=== PATIENT | female | born 1950 | race American Indian/Alaskan Native ===

== ENCOUNTER 2017-10-07 12:13 | Emergency (ER) | payer MEDICARE ==
[2017-10-07 12:22] VITALS: BP 162/73
--- NOTE | 2017-10-07 14:58 | Emergency Department Report ---
Chief Complaint: Extremity Injury, Lower Stated Complaint: LEFT ANKLE PAIN Time Seen by Provider: 10/07/17 14:30 - HPI History of Present Illness: 67-year-old female presents to the emergency department with complaint of left ankle pain and swelling that occurred after she tripped over a gas hose while trying to fill up her car. She then rolled her foot and ankle. She is able to bear some weight but it hurts. She has a past medical history of diabetes and hypertension and hypothyroidism. She has not taken anything for her symptoms prior to presentation. - ROS Review of Systems: Positive for ankle pain and swelling Negative for skin color change, rash - Exam Vital Signs: Vital Signs 10/07/17 12:19 Temperature 97.8 F Pulse Rate 77 Respiratory 18 Rate Blood Pressure 162/73 O2 Sat by Pulse 97 Oximetry Physical Exam: Patient has tenderness to palpation to the left lateral malleolus where she has some nonpitting swelling. She has intact +2 over 4 left dorsalis pedis pulse MSE screening note: Focused history and physical exam performed. Due to findings the following was ordered: We will obtain a left ankle x-ray. ED Disposition for MSE Condition: Stable Referrals: PRIMARY CARE [Primary Care Provider] - 3-5 Days
--- NOTE | 2017-10-07 16:01 | XRay Report ---
FINAL REPORT EXAM: XR ANKLE 3+V LT HISTORY: left ankle pain TECHNIQUE: Three views left ankle. PRIORS: None currently available. FINDINGS: Oblique longitudinal fracture of the distal fibula is nondisplaced and above the level of the ankle mortise. Intra-articular extension noted. No tibial fractures noted. Talus appears intact. No dislocation. Small Achilles enthesophyte. There is no cortical destruction to suggest osteomyelitis. There are no suspicious osseous lesions. There are no radiopaque foreign objects. IMPRESSION: Comminuted fracture of the distal fibula.
--- NOTE | 2017-10-07 16:37 | Emergency Department Report ---
ED Lower Extremity HPI - General Chief Complaint: Extremity Injury, Lower Stated Complaint: LEFT ANKLE PAIN Time Seen by Provider: 10/07/17 14:30 Source: patient Mode of arrival: Ambulatory Limitations: No Limitations - History of Present Illness Initial Comments: This 67-year-old -Irish female presents with left ankle pain. Patient reports pumping gas at [employer] around 11:30 1145 today. She tried to step over a hose and tripped. She is unsure of sure which direction her ankle twisted. She was on her way to visit her sister and were was and decided to make a stop here because she noticed swelling and severe pain to left ankle. Pain is aggravated by weightbearing but patient is able to ambulate. Denies numbness/tingling, hitting head, LOC, nausea/vomiting, and redness to area. MD Complaint: ankle injury (left ankle swelling and pain) -: This afternoon Injury: Ankle: Left (lateral swelling and pain with weight bearing) Type of Injury: unknown Place: street/outdoors ([place]) Severity: severe Severity scale (0 -10): 9 Improves With: nothing Worsens With: weight bearing Context: fall Associated Symptoms: swelling, able to partially bear weight, ambulatory. denies: snap/pop sensation, numbness, tingling, unable to bear weight - Related Data Previous Rx's Medication Instructions Recorded Last Taken Type Acetaminophen/Codeine [Tylenol 1 tab PO Q6H PRN #20 tab 10/07/17 Unknown Rx /Codeine # 3 tab] Cyclobenzaprine HCl [Flexeril 5 MG 5 mg PO TID PRN #15 tab 10/07/17 Unknown Rx TAB] Allergies Allergy/AdvReac Type Severity Reaction Status Date / Time cefuroxime [From Ceftin] Allergy Hives Verified 10/07/17 12:19 ED Review of Systems ROS: Stated complaint: LEFT ANKLE PAIN Other details as noted in HPI Constitutional: denies: chills, fever Respiratory: denies: cough, shortness of breath, wheezing Cardiovascular: denies: chest pain, palpitations Gastrointestinal: denies: abdominal pain, nausea, vomiting, diarrhea Musculoskeletal: joint swelling (swelling to left lateral side of ankle), arthralgia. denies: back pain Neurological: denies: headache, weakness, numbness, paresthesias Psychiatric: denies: anxiety, depression ED Past Medical Hx - Past Medical History Hx Hypertension: Yes Hx Diabetes: Yes Additional medical history: THYROID - Surgical History Additional Surgical History: X2, HERNIA REPAIR, - Social History Smoking Status: Never Smoker Substance Use Type: None - Medications Home Medications: Home Medications Medication Instructions Recorded Confirmed Last Taken Type Acetaminophen/Codeine [Tylenol 1 tab PO Q6H PRN #20 tab 10/07/17 Unknown Rx /Codeine # 3 tab] Cyclobenzaprine HCl [Flexeril 5 MG 5 mg PO TID PRN #15 tab 10/07/17 Unknown Rx TAB] ED Physical Exam - General Limitations: No Limitations General appearance: alert, in no apparent distress - Respiratory Respiratory exam: Present: normal lung sounds bilaterally. Absent: respiratory distress, wheezes, rales, rhonchi, stridor, decreased breath sounds - Cardiovascular Cardiovascular Exam: Present: regular rate, normal rhythm, normal heart sounds. Absent: systolic murmur, diastolic murmur, rubs, gallop - GI/Abdominal GI/Abdominal exam: Present: soft, normal bowel sounds. Absent: distended, tenderness, guarding, rebound, rigid, organomegaly, mass - Extremities Exam Extremities exam: Present: normal inspection, normal capillary refill. Absent: calf tenderness - Expanded Lower Extremity Exam Left Hip exam: Present: normal inspection, full ROM Upper Leg exam: Present: normal inspection, full ROM Knee exam: Present: normal inspection, full ROM Lower Leg exam: Present: normal inspection, full ROM Ankle exam: Present: tenderness (along lateral malleolus), swelling (mild swelling at lateral malleolus). Absent: full ROM (unable to tolerate ROM), abrasion, laceration, ecchymosis, deformity, crepidus, dislocation Foot/Toe exam: Present: normal inspection, full ROM. Absent: laceration, ecchymosis, erythema, puncture wound Neuro vascular tendon exam: Present: no vascular compromise Gait: Positive: observed and limited by pain (partial weight bearing) ED Course Vital Signs 10/07/17 12:19 Temperature 97.8 F Pulse Rate 77 Respiratory 18 Rate Blood Pressure 162/73 O2 Sat by Pulse 97 Oximetry ED Lower Extremity MDM - Radiology Data Radiology results: report reviewed FINAL REPORT EXAM: XR ANKLE 3+V LT HISTORY: left ankle pain TECHNIQUE: Three views left ankle. PRIORS: None currently available. FINDINGS: Oblique longitudinal fracture of the distal fibula is nondisplaced and above the level of the ankle mortise. Intra-articular extension noted. No tibial fractures noted. Talus appears intact. No dislocation. Small Achilles enthesophyte. There is no cortical destruction to suggest osteomyelitis. There are no suspicious osseous lesions. There are no radiopaque foreign objects. IMPRESSION: Comminuted fracture of the distal fibula. - Medical Decision Making This is a 67 y.o. female presents with left ankle pain s/p fall this afternoon around 1130. Patient was examined by me and Dr. Linares. Vitals stable. Xray of left ankle, Comminuted fracture of the distal fibula. Patient informed of results. Given crutches and instructions on use, applied acewrap and stirrup splint to LLE. Start tylenol #3 and cyclobenzaprine for pain. Plan discussed with patient to follow up with Orthopedic Surgeon. She agrees with ER plan. Patient discharged home in stable condition. Follow up with PCP and Ortho in 2- 3 days. Critical care attestation.: If time is entered above; I have spent that time in minutes in the direct care of this critically ill patient, excluding procedure time. ED Disposition Clinical Impression: Fracture of distal fibula Qualifiers: Encounter type: initial encounter Fracture type: closed Fracture morphology: unspecified fracture morphology Laterality: left Qualified Code(s): S82.832A - Other fracture of upper and lower end of left fibula, initial encounter for closed fracture Disposition: DC- TO HOME OR SELFCARE Is pt being admited?: No Does the pt Need Aspirin: No Condition: Stable Instructions: Ankle Fracture (ED) Additional Instructions: Rest, Use ice or heat on affected area for 20 minutes and off for 2 hours. Take pain medication as needed for pain. Don't drive or operate heavy machinery while taking muscle relaxers because they may cause drowsiness. Follow up with orthopedic surgery in 2-3 days. Prescriptions: Acetaminophen/Codeine [Tylenol /Codeine # 3 tab] 1 tab PO Q6H PRN #20 tab PRN Reason: Pain Cyclobenzaprine HCl [Flexeril 5 MG TAB] 5 mg PO TID PRN #15 tab PRN Reason: Muscle Spasm Referrals: JAN LAGOS MD [Staff Physician] - 3-5 Days [facility] [Provider Group] - 3-5 Days [facility] [Provider Group] - 3-5 Days Time of Disposition: 16:39 Print Language: MACEDON[place]
== END 2017-10-07 17:28 | disposition home or self-care (01) ==
LOC: ED 12:13
DX: S82.832A Other fracture of upper and lower end of left fibula, initial encounter for closed fracture (principal); I10 Essential (primary) hypertension; E11.9 Type 2 diabetes mellitus without complications; Z88.8 Allergy status to other drugs, medicaments and biological substances; W18.49XA Other slipping, tripping and stumbling without falling, initial encounter; Y93.89 Activity, other specified; Y92.89 Other specified places as the place of occurrence of the external cause; Y99.8 Other external cause status